=== PATIENT | male | born 1995 | race Caucasian/White ===

== ENCOUNTER 2016-12-05 20:50 | Emergency (ER) | payer OTHER ==
[2016-12-05 20:57] VITALS: TEMP 97.5; O2SAT 96
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
[2016-12-05 23:04] VITALS: BP 117/58; PULSE 79; RESP 14
== END 2016-12-05 23:04 | disposition home or self-care (01) ==
PROC: 0HQ1XZZ Repair Face Skin, External Approach (ICD-10-PCS; principal; 2016-12-05)
DX: S01.81XA Laceration without foreign body of other part of head, initial encounter (principal); V18.4XXA Pedal cycle driver injured in noncollision transport accident in traffic accident, initial encounter; Y92.410 Unspecified street and highway as the place of occurrence of the external cause; Y99.8 Other external cause status; Y93.55 Activity, bike riding